=== PATIENT | female | born 1990 | race Caucasian/White ===

== ENCOUNTER 2016-08-07 09:23 | Day surgery (SDC) | payer BC ==
[~2016-08-07] VITALS: Ht 157.5 cm; Wt 66.4 kg
[~2016-08-07 09:23] MED LIST: ENDOCET 5-3251 EACH PO; IBUPROFEN800 MG PO; PRENATAL TABLE1 EAC3 PO
[2016-08-07] MEDS ORDERED: JOLIVETTE0.35 MG PO (10:01)
[2016-08-07 10:16] LABS: HEMATOCRIT 40.2 % (36.0-46.0); MCH 31.7 PG (29.0-34.0); MCHC 34.6 G/DL (30.0-36.0); MCV 91.6 FL (83-99); MEAN PLAT.VOLUME 9.7 uM^3 (9.5-12.4); PLATELET COUNT 246 K/uL (156-360); RBC DIS.WIDTH-CV 12.4 % (11.8-14.6); RBC DIS.WIDTH-SD 40.4 % (39-53); RED BLOOD COUNT 4.39 M/uL (3.80-5.20); WHITE BLOOD COUNT 15.5 K/uL (4.1-10.2)
[2016-08-07 10:28] LABS: CHLORIDE 108 mEq/L (99-109); POTASSIUM 3.9 mEq/L (3.7-5.4); SODIUM 139 mEq/L (136-147)
[2016-08-07 10:30] LABS: GLUCOSE 105 mg/dL (70-99)
[2016-08-07 10:31] LABS: ADD MIUA? NO; BILIRUBIN NEGATIVE; BLOOD NEGATIVE; COLOR YELLOW ((YELLOW)); GLUCOSE (STRIP) NEGATIVE; KETONES TRACE; LEUKOCYTES NEGATIVE; NITRITE NEGATIVE; PROTEIN (STRIP) NEGATIVE; SPECIFIC GRAVITY 1.021 (1.000-1.030); UCUL ADDED? NO; UROBILINOGEN 0.2 MG/DL (0.2-1.0)
[2016-08-07 10:31] LABS: ANION GAP 8 MEQ/L (2-14)
[2016-08-07 10:32] LABS: TOTAL BILIRUBIN 0.8 mg/dL (0.0-1.0)
[2016-08-07 10:34] LABS: ALKALINE PHOSPHATASE 82 IU/L (3-129); GFR ESTIMATE (CALCULATED) > 59 mL/min/
[2016-08-07 10:35] LABS: UREA NITROGEN (BUN) 13 mg/dL (9-23)
[2016-08-07 10:42] LABS: QUANTITATIVE HCG < 4.0 MIU/ML
[2016-08-07 19:30] VITALS: BP 100/52
[2016-08-07 20:01] VITALS: BP 100/52
[2016-08-07 23:28] VITALS: BP 96/52
[2016-08-08 03:15] VITALS: BP 100/55
[2016-08-08 07:05] VITALS: BP 113/69
[2016-08-08 07:19] LABS: HEMATOCRIT 39.2 % (36.0-46.0); MCH 31.5 PG (29.0-34.0); MCHC 33.9 G/DL (30.0-36.0); MCV 92.9 FL (83-99); MEAN PLAT.VOLUME 10.4 uM^3 (9.5-12.4); PLATELET COUNT 231 K/uL (156-360); RBC DIS.WIDTH-CV 12.5 % (11.8-14.6); RBC DIS.WIDTH-SD 42.4 % (39-53); RED BLOOD COUNT 4.22 M/uL (3.80-5.20); WHITE BLOOD COUNT 13.2 K/uL (4.1-10.2)
[2016-08-08 07:41] LABS: ANION GAP 12 MEQ/L (2-14); CHLORIDE 104 MEQ/L (99-109); GFR ESTIMATE (CALCULATED) > 59 mL/min/; GLUCOSE 96 mg/dL (70-99); MAGNESIUM 1.6 mg/dl (1.3-2.7); POTASSIUM 4.2 MEQ/L (3.7-5.4); SAMPLE HEMOLYSIS CHECK 0; SAMPLE ICTERIC CHECK 0; SAMPLE LIPEMIA CHECK 0; SODIUM 138 MEQ/L (136-147); UREA NITROGEN (BUN) 11 mg/dL (9-23)
[2016-08-08] MEDS ORDERED: AUGMENTIN875 MG PO (09:46)
[2016-08-08] MEDS ORDERED: ZOFRAN ODT4 MG PO (09:46)
[2016-08-08] MEDS ORDERED: OXYCODONE HCL10 MG PO (09:46)
[2016-08-08 11:38] VITALS: BP 116/67
[2016-08-08 16:04] VITALS: BP 112/73
[2016-08-08 19:59] VITALS: BP 123/63
[2016-08-08 23:21] VITALS: BP 110/64
[2016-08-09 03:15] VITALS: BP 107/65
[2016-08-09 08:15] VITALS: BP 106/53
[2016-08-09 11:55] VITALS: BP 115/62
== END 2016-08-09 14:58 | disposition home or self-care (01) ==
LOC: EME 09:23 → SDC 15:40 → EME 15:40 → 2SOUTH 17:44 → 2EAST 17:44 → 2SOUTH 17:44 → 2EAST 19:14
PROVIDERS: Surgery
PROC: 0DTJ4ZZ Resection of Appendix, Percutaneous Endoscopic Approach (ICD-10-PCS; principal; 2016-08-07)
DX: K35.80 Unspecified acute appendicitis (principal); K90.41 Non-celiac gluten sensitivity
CPT/HCPCS: 74177; 80048; 80053; 81003; 83735; 84100; 84702; 85027; 88304; 99281; 99285; G0378; J0131; J1100; J1170; J2250; J2405; J2550; J2710; J3010; J7030; J7120

== ENCOUNTER → 2017-07-04 | Outpatient (CLI) | payer BC ==
[~2017-07-04] MED LIST changes: +AUGMENTIN875 MG PO; +JOLIVETTE0.35 MG PO; +OXYCODONE HCL10 MG PO; +ZOFRAN ODT4 MG PO
== END | disposition home or self-care (01) ==
LOC: RAD 17:16
DX: M79.89 Other specified soft tissue disorders (principal)
CPT/HCPCS: 93970

== ENCOUNTER → 2018-02-07 | Outpatient (CLI) | payer BC ==
[2018-02-07 16:49] LABS: BASOPHIL (%) 0.3 % (0-1); EOSINOPHIL COUNT 0.1 K/uL (0-0.3); HEMATOCRIT 30.9 % (36.0-46.0); HEMOGLOBIN 10.1 G/DL (11.9-15.5); IMMATURE GRANULOCYTE (%) 0.8 % (0.0-0.7); LYMPHOCYTE (%) 13.7 % (15-42); LYMPHOCYTE COUNT 1.3 K/uL (1.0-2.8); MCH 28.1 PG (29.0-34.0); MCHC 32.7 G/DL (30.0-36.0); MCV 85.8 FL (83-99); MONOCYTE (%) 5.9 % (3-12); MONOCYTE COUNT 0.6 K/uL (0-0.8); NEUTROPHIL (%) 78.3 % (45-76); NEUTROPHIL COUNT 7.4 K/uL (1.8-6.4); PLATELET COUNT 199 K/uL (156-360); RBC DIS.WIDTH-CV 14.6 % (11.8-14.6); RBC DIS.WIDTH-SD 45.7 % (39-53); WHITE BLOOD COUNT 9.5 K/uL (4.1-10.2)
== END | disposition home or self-care (01) ==
LOC: LAB 16:03
PROVIDERS: Obstetrics & Gynecology Gynecology
DX: Z01.812 Encounter for preprocedural laboratory examination (principal); O34.211 Maternal care for low transverse scar from previous cesarean delivery; Z3A.40 40 weeks gestation of pregnancy
CPT/HCPCS: 85025; 86850; 86900; 86901

== ENCOUNTER 2018-02-09 09:01 | Inpatient (IN) | payer BC ==
[2018-02-09] VITALS (7 sets, daily range): BP systolic 88–120; BP diastolic 52–67
[~2018-02-09] VITALS: Ht 157.5 cm; Wt 83.0 kg
[2018-02-09] MEDS ORDERED: IBUPROFEN800 MG PO (10:37)
[2018-02-09] MEDS ORDERED: ENDOCET 5-3251 EACH PO (10:37)
[2018-02-10 04:42] LABS: BASOPHIL (%) 0.3 % (0-1); EOSINOPHIL (%) 0.5 % (0-5); EOSINOPHIL COUNT 0.1 K/uL (0-0.3); HEMATOCRIT 27.9 % (36.0-46.0); HEMOGLOBIN 9.1 G/DL (11.9-15.5); IMMATURE GRANULOCYTE (%) 0.7 % (0.0-0.7); LYMPHOCYTE (%) 12.7 % (15-42); LYMPHOCYTE COUNT 1.6 K/uL (1.0-2.8); MCH 27.6 PG (29.0-34.0); MCHC 32.6 G/DL (30.0-36.0); MCV 84.5 FL (83-99); MONOCYTE (%) 8.2 % (3-12); MONOCYTE COUNT 1.1 K/uL (0-0.8); NEUTROPHIL (%) 77.6 % (45-76); PLATELET COUNT 173 K/uL (156-360); RBC DIS.WIDTH-CV 14.6 % (11.8-14.6); RBC DIS.WIDTH-SD 44.9 % (39-53); WHITE BLOOD COUNT 12.9 K/uL (4.1-10.2)
[2018-02-10 07:12] VITALS: BP 102/57
[2018-02-10 11:03] VITALS: BP 95/53
[2018-02-10 15:14] VITALS: BP 98/56
[2018-02-11 02:25] VITALS: BP 103/52
[2018-02-11 07:36] VITALS: BP 110/57
[2018-02-11 14:30] VITALS: BP 105/59
[2018-02-11 22:08] VITALS: BP 93/52
[2018-02-12 07:15] VITALS: BP 108/59
[2018-02-12] MEDS ORDERED: ENDOCET 5-3251 EACH PO (11:37)
[2018-02-12] MEDS ORDERED: IBUPROFEN800 MG PO (11:37)
== END 2018-02-12 14:10 | disposition home or self-care (01) | DRG 766 ==
LOC: 2WEST 09:01 → 2SOUTH 11:12 → 2WEST 02-11 22:14 → 2SOUTH 02-13 11:48
PROVIDERS: Obstetrics & Gynecology Gynecology
PROC: 10D00Z1 Extraction of Products of Conception, Low, Open Approach (ICD-10-PCS; principal; 2018-02-09)
DX: O34.211 Maternal care for low transverse scar from previous cesarean delivery (principal); O76 Abnormality in fetal heart rate and rhythm complicating labor and delivery; R55 Syncope and collapse; Z3A.39 39 weeks gestation of pregnancy; Z37.0 Single live birth; O99.62 Diseases of the digestive system complicating childbirth; K58.9 Irritable bowel syndrome, unspecified; K21.9 Gastro-esophageal reflux disease without esophagitis; O99.52 Diseases of the respiratory system complicating childbirth; J45.909 Unspecified asthma, uncomplicated
CPT/HCPCS: 85025; J0690; J1100; J1885; J2274; J2405; J7120; S0020